=== PATIENT | male | born 1950 | race Hispanic/Latino ===

== ENCOUNTER 2019-06-13 08:47 | Observation (INO) | payer OTHER ==
[~2019-06-13] VITALS: Ht 177.8 cm; Wt 83.9 kg
[~2019-06-13 08:47] MED LIST: ASPI-1197 PO; ATOR10TA69 PO; METO25TA6 PO; PRAS10TA6 PO; VALS40TA11 PO
[2019-06-13] MEDS ORDERED: ASPIRIN 325 MG TABLET ONE (09:11)
[2019-06-13 09:15] LABS: BASOPHILS % (AUTO) 0.5 % (0.0-5.0); EOSINOPHILS % (AUTO) 0.9 % (0.0-8.0); HEMATOCRIT 42.4 % (42-54); LYMPHOCYTES % (AUTO) 28.4 % (21.0-51.0); MEAN CORPUSCULAR HEMOGLOBIN 27.8 pg (27.0-33.0); MEAN CORPUSCULAR HGB CONC 33.8 g/dL (32.0-36.0); MEAN CORPUSCULAR VOLUME 82.3 fL (79-99); MONOCYTES % (AUTO) 7.2 % (3.0-13.0); NUCLEATED RED BLOOD CELLS 0.1 % (0.0-0.19); PLATELET COUNT (AUTO) 224 K/uL (130-400); RED BLOOD CELL COUNT(AUTO) 5.15 MIL/uL (4.50-6.20); RED CELL DISTRIBUTION WIDTH 16.3 % (11.0-15.5)
[2019-06-13 09:31] LABS: INR 0.94 (0.85-1.15); PROTHROMBIN TIME 9.9 SEC (9.6-11.6)
[2019-06-13 09:35] LABS: ALBUMIN 3.4 g/dL (3.5-5.0); BILIRUBIN,TOTAL 0.9 mg/dL (0.2-1.0); POTASSIUM 4.4 mmol/L (3.5-5.1)
[2019-06-13 09:47] LABS: CREATININE 1.1 mg/dL (0.5-1.5)
[2019-06-13] MEDS ORDERED: NITROGLYCERIN 1GM/1 INCH PACKET TD ONE (09:50)
[2019-06-13 09:53] LABS: B-TYPE NATRIURETIC PEPTIDE 48 pg/mL (0-100)
[2019-06-13] MEDS ORDERED: LACTULOSE 20 GM/30 ML UDCUP PO PRN (11:00)
[2019-06-13] MEDS ORDERED: METOPROLOL TARTRATE 25 MG TAB PO SCH (11:00)
[2019-06-13] MEDS ORDERED: ACETAMINOPHEN 325 MG TAB PO PRN ×2 (11:00)
[2019-06-13] MEDS ORDERED: MORPHINE SULFATE 2 MG/ML 1ML SYG IV PRN (11:00)
[2019-06-13] MEDS ORDERED: ONDANSETRON HCL 4 MG/2 ML VIAL IV PRN (11:00)
[2019-06-13] MEDS ORDERED: HYDRALAZINE HCL 20 MG/ML VIAL IV PRN (11:00)
[2019-06-13] MEDS ORDERED: NITROGLYCERIN 1GM/1 INCH PACKET TD SCH (11:00)
[2019-06-13] MEDS ORDERED: METOPROLOL TARTRATE 25 MG TAB ONE ×2 (11:39→21:33)
[2019-06-13 12:19] LABS: CREATINE KINASE, TOTAL 74 U/L (21-232); MYOGLOBIN 25 ng/mL (10-92); PHOSPHORUS 2.5 mg/dL (2.5-4.9); TROPONIN I < 0.04 ng/mL (0.00-0.06)
[2019-06-13] MEDS ORDERED: ACETAMINOPHEN 325 MG TAB ONE (16:25)
[2019-06-13 19:53] LABS: CREATINE KINASE, TOTAL 48 U/L (21-232); MYOGLOBIN 24 ng/mL (10-92); TROPONIN I < 0.04 ng/mL (0.00-0.06)
[2019-06-13] MEDS ORDERED: FAMOTIDINE/PF 20 MG/2 ML VIAL IV SCH (21:00)
[2019-06-13] MEDS ORDERED: FAMOTIDINE 20MG TAB 20 MG TAB ONE (21:33)
[2019-06-14 04:17] LABS: CHOLESTEROL 195 mg/dL (<200); CREATINE KINASE, TOTAL 45 U/L (21-232); HDL CHOLESTEROL 45 mg/dL (29-71); LDL DIRECT 133 mg/dL (0-99); MYOGLOBIN 28 ng/mL (10-92); TRIGLYCERIDES 139 mg/dL (30-200); TROPONIN I < 0.04 ng/mL (0.00-0.06)
[2019-06-14] MEDS ORDERED: ENOXAPARIN SODIUM 40 MG/0.4 ML SYRINGE SQ SCH (09:00)
[2019-06-14] MEDS ORDERED: ASPIRIN 325 MG TABLET PO SCH (09:00)
--- NOTE | 2019-06-14 11:55 | NUR ---
DISCHARGE DISCHARGE TEACHING DONE WITH PATIENT AND USING TEACHBACK METHOD, VERBALIZED UNDERSTANDING. NO NOTED SOB OR DISTRESS. NEW MEDICATION ADMINISTRATION TEACHING DONE WITH PATIENT AND , VERBALIZED UNDERSTANDING. PT AWARE TO SET UP APPOINTMENT WITH PCP AND SUBSTATION OPERATOR. IV REMOVED, CATH TIP INTACT. PENDING TO BE TRANSFERRED OUT VIA PRIVATE VEHICLE.
== END 2019-06-14 11:55 | disposition home or self-care (01) ==
LOC: EDH 08:47 → EDHIP 10:52
PROVIDERS: ADMIT Internal Medicine; ATTEND Internal Medicine
DX: I25.110 Atherosclerotic heart disease of native coronary artery with unstable angina pectoris (principal); E78.5 Hyperlipidemia, unspecified; I10 Essential (primary) hypertension; I25.5 Ischemic cardiomyopathy; Z87.442 Personal history of urinary calculi; Z95.1 Presence of aortocoronary bypass graft; Z95.5 Presence of coronary angioplasty implant and graft; Z80.0 Family history of malignant neoplasm of digestive organs; Z82.3 Family history of stroke; Z82.49 Family history of ischemic heart disease and other diseases of the circulatory system; Z83.3 Family history of diabetes mellitus; Z79.899 Other long term (current) drug therapy; Z79.01 Long term (current) use of anticoagulants
CPT/HCPCS: 36415 ×2; 71045; 80053; 80061; 82550 ×4; 83735; 83874 ×3; 83880; 84100; 84484 ×4; 85025; 85610; 85730; 93005 ×4; 99284; G0378 ×25

== ENCOUNTER 2019-08-16 09:55 | Observation (INO) | payer OTHER ==
[2019-08-11 10:21] VITALS: BP 155/92
[2019-08-11 10:27] LABS: APPEARANCE,URINE Clear (CLEAR); BILIRUBIN,URINE Negative (NEGATIVE); COLOR,URINE Yellow (YELLOW); GLUCOSE, URINE (UA) Negative (NEGATIVE); KETONES,URINE Negative (NEGATIVE); LEUKOCYTE ESTERASE ,URINE Trace (NEGATIVE); NITRATE,URINE Negative (NEGATIVE); OCCULT BLOOD,URINE Negative (NEGATIVE); PH,URINE 6.5 (5.0-8.0); PROTEIN,URINE Negative (NEGATIVE)
[2019-08-11 10:28] LABS: BASOPHILS % (AUTO) 0.7 % (0.0-5.0); EOSINOPHILS % (AUTO) 1.5 % (0.0-8.0); HEMATOCRIT 42.8 % (42-54); LYMPHOCYTES % (AUTO) 29.5 % (21.0-51.0); MEAN CORPUSCULAR HEMOGLOBIN 28.3 pg (27.0-33.0); MEAN CORPUSCULAR HGB CONC 33.9 g/dL (32.0-36.0); MEAN CORPUSCULAR VOLUME 83.5 fL (79-99); MONOCYTES % (AUTO) 8.2 % (3.0-13.0); NEUTROPHILS % (AUTO) 60.1 % (40.0-77.0); NUCLEATED RED BLOOD CELLS 0.1 % (0.0-0.19); PLATELET COUNT (AUTO) 183 K/uL (130-400); RED BLOOD CELL COUNT(AUTO) 5.13 MIL/uL (4.50-6.20); RED CELL DISTRIBUTION WIDTH 15.6 % (11.0-15.5); WHITE BLOOD COUNT (AUTO) 6.9 K/uL (4.8-10.8)
[2019-08-11 10:32] LABS: BACTERIA,URINE Rare /HPF (None Seen); MUCUS,URINE Moderate LPF (None Seen); RBC,URINE None Seen /HPF (0-1); SQUAMOUS EPITHELIAL CELL,UR Rare /HPF (0-2); WBC,URINE 0-1 /HPF (0-1)
[2019-08-11 10:39] LABS: POTASSIUM 4.7 mmol/L (3.5-5.1)
[2019-08-11 10:42] LABS: INR 0.98 (0.85-1.15); PARTIAL THROMBOPLASTIN TIME 26.8 SEC (26.3-35.5); PROTHROMBIN TIME 10.3 SEC (9.6-11.6)
--- NOTE | 2019-08-15 11:44 | NUR ---
EARNEST BOO NOTIFIED OF ABNORMAL UA, NO NEW ORDERS, PROCEED WITH PROCEDURE.
[2019-08-16] VITALS (10 sets, daily range): BP systolic 97–151; BP diastolic 57–87
[~2019-08-16] VITALS: Ht 177.8 cm; Wt 84.1 kg
[~2019-08-16 09:55] MED LIST changes: +ENAL5TAB PO; -METO25TA6 PO; +NITR0.4T50 SL; -PRAS10TA6 PO; +SODIUM CHLORIDE 0.9% 1000ML 1,000 ML IV SCH; +TELM20TA8 PO; -VALS40TA11 PO
[2019-08-16] MEDS ORDERED: PRAS10TA6 PO (12:06)
[2019-08-16] MEDS ORDERED: METO50TA18 PO (12:08)
[2019-08-16] MEDS ORDERED: IOHEXOL 350 MG/ML 100ML INFUS..BTL IV ONE ×2 (12:12→13:10)
[2019-08-16] MEDS ORDERED: NITROGLYCERIN 5 MG/ML 10 ML VIAL IV ONE (12:12)
[2019-08-16] MEDS ORDERED: HEPARIN SODIUM 1000UNIT/ML 10ML VIAL ONE (12:12)
[2019-08-16] MEDS ORDERED: IOHEXOL-350 50ML VIAL IV ONE (12:12)
[2019-08-16] MEDS ORDERED: LIDOCAINE HCL 2% 20ML ONE (12:13)
[2019-08-16] MEDS ORDERED: NICARDIPINE HCL 25 MG/10 ML ML IV ONE (13:43)
[2019-08-16] MEDS ORDERED: ADENOSINE 3 MG/ML 2ML VIAL IV ONE (13:44)
[2019-08-16] MEDS ORDERED: MIDAZOLAM HCL 1 MG/ML 2ML VIAL ONE (13:46)
[2019-08-16] MEDS ORDERED: ATROPINE SULFATE 0.1 MG/ML 10 ML SYG IVP ONE (13:47)
[2019-08-16] MEDS ORDERED: MEPERIDINE-PF 25 MG/ML SYG ONE (13:47)
[2019-08-16] MEDS ORDERED: ACETAMINOPHEN 325 MG TAB PO PRN (14:00)
[2019-08-16] MEDS ORDERED: SODIUM CHLORIDE 0.9% 1000ML 1,000 ML IV SCH (14:00)
[2019-08-16] MEDS ORDERED: NITROGLYCERIN 0.4 MG SL TAB SL SCH (14:15)
[2019-08-16] MEDS: FUROSEMIDE 20 MG TABLET PO SCH (16:58)
[2019-08-16] MEDS ORDERED: ATORVASTATIN CALCIUM 10 MG TABLET PO SCH (21:00)
[2019-08-16] MEDS ORDERED: ATORVASTATIN CALCIUM 40 MG TABLET PO SCH (21:00)
[2019-08-16] MEDS: SPIRONOLACTONE 25 MG TAB PO SCH (21:11)
[2019-08-16] MEDS: METOPROLOL TARTRATE 50 MG TAB PO SCH (21:11)
[2019-08-16] MEDS: ENALAPRIL MALEATE 5 MG TAB PO SCH (21:11)
[2019-08-17 03:59] VITALS: BP 109/62
[2019-08-17 04:49] LABS: HEMATOCRIT 41.5 % (42-54); MEAN CORPUSCULAR HEMOGLOBIN 28.2 pg (27.0-33.0); MEAN CORPUSCULAR HGB CONC 33.9 g/dL (32.0-36.0); PLATELET COUNT (AUTO) 187 K/uL (130-400); RED CELL DISTRIBUTION WIDTH 15.2 % (11.0-15.5); WHITE BLOOD COUNT (AUTO) 10.2 K/uL (4.8-10.8)
[2019-08-17 05:07] LABS: POTASSIUM 4.7 mmol/L (3.5-5.1)
[2019-08-17 07:44] VITALS: BP 119/64
[2019-08-17] MEDS ORDERED: PRASUGREL HCL 10 MG TABLET PO SCH (09:00)
[2019-08-17] MEDS ORDERED: LOSARTAN 50 MG TABLET PO SCH (09:00)
[2019-08-17] MEDS ORDERED: ASPIRIN 81MG TAB.CHEW PO SCH (09:00)
[2019-08-17] MEDS: SPIRONOLACTONE 25 MG TAB PO SCH (10:23)
[2019-08-17] MEDS: FUROSEMIDE 20 MG TABLET PO SCH (10:23)
[2019-08-17] MEDS: ENALAPRIL MALEATE 5 MG TAB PO SCH (10:24)
[2019-08-17] MEDS: METOPROLOL TARTRATE 50 MG TAB PO SCH (10:25)
[2019-08-17 11:32] VITALS: BP 109/63
--- NOTE | 2019-08-17 13:10 | NUR ---
Patient discharged in stable condition. Patient instructed on after care of LHC. Patient states he was aware of aftercare of LHC as it was his 4th one done. Reinforced s/s of instruction of reporting s/s of redness, oozing, fever chills ,monitor for s/s of bleeding and hematoma. IV and telepack removed. Patient with no other questions or concerns.
== END 2019-08-17 13:40 | disposition home or self-care (01) ==
LOC: DAH 09:55 → DAHIP 09:56 → DAH 09:56 → 2AH 15:28
PROVIDERS: ADMIT Internal Medicine; ATTEND Internal Medicine
DX: I25.119 Atherosclerotic heart disease of native coronary artery with unspecified angina pectoris (principal); I11.0 Hypertensive heart disease with heart failure; I50.42 Chronic combined systolic (congestive) and diastolic (congestive) heart failure; K21.9 Gastro-esophageal reflux disease without esophagitis; I25.5 Ischemic cardiomyopathy; E78.00 Pure hypercholesterolemia, unspecified; T82.855A Stenosis of coronary artery stent, initial encounter; Y83.1 Surgical operation with implant of artificial internal device as the cause of abnormal reaction of the patient, or of later complication, without mention of misadventure at the time of the procedure; Z80.0 Family history of malignant neoplasm of digestive organs; Z82.3 Family history of stroke; Z82.49 Family history of ischemic heart disease and other diseases of the circulatory system; Z83.3 Family history of diabetes mellitus; Z95.1 Presence of aortocoronary bypass graft; Z90.89 Acquired absence of other organs
CPT/HCPCS: 36415 ×2; 71045; 80048 ×2; 81001; 85025; 85027; 85610; 85730; 93005; 93459; A4215; A4216; A4221; A4222; A4223 ×3; A4606; C1760; C1769; C1874 ×3; C1887; C1894; C9604; G0378 ×24; J0153; J1644 ×2; J2175; J2250; J3490 ×2; J7030; Q9965 ×2; Q9967 ×3; 99156; 99157; J0461

== ENCOUNTER 2019-08-25 10:47 | Emergency (ER) | payer OTHER ==
[~2019-08-25 10:47] MED LIST changes: +METO50TA18 PO; +PRAS10TA6 PO; -SODIUM CHLORIDE 0.9% 1000ML 1,000 ML IV SCH
[2019-08-25] MEDS ORDERED: ASPIRIN 325 MG TABLET ONE (10:58)
[2019-08-25 11:14] LABS: BASOPHILS % (AUTO) 1.1 % (0.0-5.0); EOSINOPHILS % (AUTO) 1.4 % (0.0-8.0); HEMATOCRIT 41.5 % (42-54); LYMPHOCYTES % (AUTO) 24.9 % (21.0-51.0); MEAN CORPUSCULAR HEMOGLOBIN 28.4 pg (27.0-33.0); MEAN CORPUSCULAR HGB CONC 34.4 g/dL (32.0-36.0); MEAN CORPUSCULAR VOLUME 82.4 fL (79-99); MONOCYTES % (AUTO) 7.5 % (3.0-13.0); NEUTROPHILS % (AUTO) 65.1 % (40.0-77.0); NUCLEATED RED BLOOD CELLS 0.1 % (0.0-0.19); PLATELET COUNT (AUTO) 204 K/uL (130-400); RED BLOOD CELL COUNT(AUTO) 5.03 MIL/uL (4.50-6.20); RED CELL DISTRIBUTION WIDTH 14.6 % (11.0-15.5); WHITE BLOOD COUNT (AUTO) 8.6 K/uL (4.8-10.8)
[2019-08-25] MEDS ORDERED: NITROGLYCERIN 1GM/1 INCH PACKET TD ONE (11:20)
[2019-08-25 11:23] LABS: CREATININE 1.2 mg/dL (0.5-1.5); POTASSIUM 4.3 mmol/L (3.5-5.1)
[2019-08-25 11:26] LABS: INR 0.97 (0.85-1.15); PARTIAL THROMBOPLASTIN TIME 26.4 SEC (26.3-35.5); PROTHROMBIN TIME 10.2 SEC (9.6-11.6)
[2019-08-25 11:34] LABS: ALBUMIN 3.5 g/dL (3.5-5.0); BILIRUBIN,TOTAL 0.5 mg/dL (0.2-1.0); TOTAL PROTEIN, SERUM 6.8 g/dL (6.0-8.3)
[2019-08-25] MEDS ORDERED: ACETAMINOPHEN EXTRA STRENGTH 500 MG TABLET ONE (19:48)
== END 2019-08-25 20:25 | disposition home or self-care (01) ==
LOC: EDH 10:47
DX: R07.89 Other chest pain (principal); I10 Essential (primary) hypertension; E78.5 Hyperlipidemia, unspecified; I25.10 Atherosclerotic heart disease of native coronary artery without angina pectoris; I25.2 Old myocardial infarction; Z95.1 Presence of aortocoronary bypass graft; Z88.0 Allergy status to penicillin; Z79.899 Other long term (current) drug therapy
CPT/HCPCS: 36415; 71045; 80053; 82550; 83874; 84484; 85025; 85610; 85730; 93005

== ENCOUNTER 2020-01-17 09:42 | Observation (INO) | payer OTHER ==
[2020-01-12 10:10] VITALS: BP 136/68
[2020-01-12 10:24] LABS: BASOPHILS % (AUTO) 0.5 % (0.0-5.0); EOSINOPHILS % (AUTO) 1.4 % (0.0-8.0); HEMATOCRIT 40.3 % (42-54); LYMPHOCYTES % (AUTO) 25.7 % (21.0-51.0); MEAN CORPUSCULAR HEMOGLOBIN 27.1 pg (27.0-33.0); MEAN CORPUSCULAR VOLUME 82.2 fL (79-99); MONOCYTES % (AUTO) 7.2 % (3.0-13.0); NEUTROPHILS % (AUTO) 64.9 % (40.0-77.0); PLATELET COUNT (AUTO) 227 K/uL (130-400); RED CELL DISTRIBUTION WIDTH 14.6 % (11.0-15.5); WHITE BLOOD COUNT (AUTO) 7.7 K/uL (4.8-10.8)
[2020-01-12 10:35] LABS: CREATININE 1.1 mg/dL (0.5-1.5); POTASSIUM 4.9 mmol/L (3.5-5.1)
[2020-01-12 10:36] LABS: INR 0.98 (0.85-1.15); PARTIAL THROMBOPLASTIN TIME 26.6 SEC (26.3-35.5); PROTHROMBIN TIME 10.3 SEC (9.6-11.6)
[~2020-01-17] VITALS: Ht 177.8 cm; Wt 83.1 kg
[2020-01-17] VITALS (12 sets, daily range): BP systolic 94–142; BP diastolic 53–78
[~2020-01-17 09:42] MED LIST changes: -ENAL5TAB PO; +EZET10TA48 PO; -NITR0.4T50 SL; +SODIUM CHLORIDE 0.9% 1000ML 1,000 ML IV SCH; +SPIR25TA6 PO
[2020-01-17] MEDS ORDERED: TELM40TA8 PO (10:56)
[2020-01-17] MEDS ORDERED: ATOR-2 PO (10:56)
--- NOTE | 2020-01-17 12:58 | NUR ---
PROCEDURE PT TAKEN TO BALANCE WHEEL FACER FOR SCHEDULED PROCEDURE
[2020-01-17] MEDS ORDERED: CEFAZOLIN SODIUM 1 GM VIAL ONE (13:02)
[2020-01-17] MEDS ORDERED: BUPIVACAINE/PF 0.25% 30ML VIAL IJ ONE (13:04)
[2020-01-17] MEDS ORDERED: IODIXANOL 320 MG/ML 100 ML VIAL ONE (13:04)
[2020-01-17] MEDS ORDERED: LIDOCAINE HCL 1% MDV 50ML VIAL ONE (13:04)
[2020-01-17] MEDS ORDERED: MIDAZOLAM HCL 1 MG/ML 2ML VIAL ONE ×3 (13:04→13:46)
[2020-01-17] MEDS ORDERED: MEPERIDINE-PF 25 MG/ML SYG ONE ×3 (13:04→13:46)
[2020-01-17] MEDS ORDERED: VANCOMYCIN 1GM+NS 250ML 500 ML IV ONE (13:06)
[2020-01-17] MEDS ORDERED: TEMAZEPAM 30 MG CAP PO PRN (14:45)
[2020-01-17] MEDS ORDERED: ONDANSETRON HCL 4 MG/2 ML VIAL IV PRN (14:45)
[2020-01-17] MEDS ORDERED: ACETAMINOPHEN-CODEINE 300/30MG TAB PO PRN (14:45)
--- NOTE | 2020-01-17 15:00 | NUR ---
PT ARRIVED FROM TELEPHONE LINES REPAIRER, STABLE , PRESSURE DRESSING LEFT CHEST WALL, DRY AND INTACT.
--- NOTE | 2020-01-17 16:30 | NUR ---
REPORT REPORT RECEIVED FROM MAGED VENTURA RN. PT RECEIVED SEMI SITTING POSITION ON BED. PT STABLE. LEFT ARM IN SLING, PRESSURE DRESSING LEFT UPPER CHEST INTACT, ICE PACK IN PLACE. GAUZE/OPSITE DRESSING TO INCISION WITH SOME PINKISH DRAINAGE NOTED, NO ACTIVE OOZING OR ACTIVE BLEEDING NOTED. SITE SOFT, NO HEMATOMA NOTED. PT INSTRUCTED NOT TO ELEVATE LEFT ARM ABOVE SHOULDER LEVEL, KEEP HOB ELEVATED. PT VERBALIZED UNDERSTANDING. WILL CONTINUE TO MONITOR PT.
--- NOTE | 2020-01-17 16:30 | NUR ---
GAVE REPORT TO DIGNA JAY RN , NO CONCERNS VOICED
--- NOTE | 2020-01-17 16:50 | NUR ---
PT COMPLAINING OF SORENESS TO LEFT CHEST AICD SITE, REFUSED TYLENOL #3, PREFERS TYLENOL PLAIN. CALLED [facility] FOR DR. CROCKETT. ORDERS FOR TYLENOL 650 MG PO X1 NOW. Addendum: 01/17/20 at 1810 by HIPOLITO JAY RN RN ADDENDUM: AICD SITE LEFT UPPER CHEST REMAINS SOFT, NO ACTIVE OOZING NO BLEEDING NOTED.
[2020-01-17] MEDS ORDERED: ACETAMINOPHEN 325 MG TAB ONE (16:55)
--- NOTE | 2020-01-17 17:20 | NUR ---
SITE AICD SITE CHECKED, NO CHANGES NOTED. PT VERBALIZED RELIEF FROM PAIN, STATES HE FEELS SO MUCH BETTER.
--- NOTE | 2020-01-17 17:50 | NUR ---
TRANSFER PT TRANSFERRED TO ROOM 220. PT STABLE. PRESSURE DRESSING REMAINS INTACT, AICD SITE NO CHANGES, REMAINS SOFT, NO OOZING NO BLEEDING NOTED. PT RECEIVED BY JL PHILLIP. REPORT GIVEN TO MARJAN COPELAND.
--- NOTE | 2020-01-17 18:10 | NUR ---
TRANSFER FROM DAY PATIENT RECEIVED PT IN SEMI LOPEZ'S POSITION, A&OX3, CALM COOPERATIVE AND DOES NOT APPEAR TO BE IN ANY DISTRESS NOR ANY NEURO DEFICITS PRESENT. PT DENIES PAIN, SOB, NAUSEA. LEFT SHOULDER DRESSING DRY, INTACT AND SECURED WITH ARM SLING. PT ON BEDREST UNTIL 2100. CALL LIGHT WITHIN REACH, FAMILY AT BEDSIDE.
[2020-01-17] MEDS ORDERED: ACETAMINOPHEN 325 MG TAB PO ONE (19:00)
[2020-01-17] MEDS: ACETAMINOPHEN-CODEINE 300/30MG TAB PO PRN (19:49)
[2020-01-18] MEDS: ACETAMINOPHEN-CODEINE 300/30MG TAB PO PRN (02:10)
[2020-01-18 04:03] VITALS: BP 122/74
[2020-01-18] MEDS ORDERED: VANCOMYCIN 1GM+NS 250ML 250 ML IV PRN (06:00)
[2020-01-18 07:38] VITALS: BP 117/69
--- NOTE | 2020-01-18 08:00 | NUR ---
ASSESSMENT PT IS AAOX3 DENIES CP DENIES SOB DENIES NV NO COMPLAINTS, SITTING UP AT BEDSIDE. CALL LIGHT WITHIN REACH. DR KEIRA FRAZIER, SAW PATIENT, HE CHANGED DRESSING TO LEFT UPPER CHEST.
[2020-01-18] MEDS ORDERED: DOXY100C2 PO (09:09)
[2020-01-18 11:46] VITALS: BP 121/61
--- NOTE | 2020-01-18 12:25 | NUR ---
DISCHARGE PT AND FAMILY VERBALIZE DC INSTRUCTIONS UNDERSTANDING AGREE TO TAKE MDS ORDERED, AGREE TO FOLLOW UP WITH MD ORDERED ALL QUESTIONS ANSWERED PIV REMOVED CATH TIP INTACT, TELE PACK REMOVED. HIPOLITO WALDEN WITH NURSE AIDE AND FAMILY.
--- NOTE | 2020-01-18 13:47 | NUR ---
[id number] Patient signed SON Letter. I faxed SON Letter to [id number] and placed in chart under consent tab
== END 2020-01-18 12:50 | disposition home or self-care (01) ==
LOC: DAH 09:42 → DAHIP 09:43 → DAH 09:43 → 2DH 17:56
PROVIDERS: ADMIT Internal Medicine; ATTEND Internal Medicine
DX: I25.5 Ischemic cardiomyopathy (principal); I25.810 Atherosclerosis of coronary artery bypass graft(s) without angina pectoris; I10 Essential (primary) hypertension; E78.5 Hyperlipidemia, unspecified; Z95.0 Presence of cardiac pacemaker; Z95.1 Presence of aortocoronary bypass graft; K21.9 Gastro-esophageal reflux disease without esophagitis; Z79.01 Long term (current) use of anticoagulants; Z79.82 Long term (current) use of aspirin; Z79.899 Other long term (current) drug therapy; Z88.0 Allergy status to penicillin; Z98.890 Other specified postprocedural states; Z95.5 Presence of coronary angioplasty implant and graft
CPT/HCPCS: 33249; 36415; 71046; 80048; 85025; 85610; 85730; 93005; A4215; A4216; A4221; A4222; A4223 ×3; A4606; A4663; C1721; C1894; C1895 ×2; G0378 ×22; J2175 ×2; J2250 ×2; J3370; J3490 ×2; J7030; 99156; 99157; J0690; Q9967

== ENCOUNTER → 2020-05-16 | Outpatient (CLI) | payer OTHER ==
[~2020-05-16] MED LIST changes: +ATOR-2 PO; -ATOR10TA69 PO; +DOXY100C2 PO; -SODIUM CHLORIDE 0.9% 1000ML 1,000 ML IV SCH; -TELM20TA8 PO; +TELM40TA8 PO
== END | disposition home or self-care (01) ==
LOC: SHCH 14:19
PROVIDERS: ATTEND Internal Medicine Cardiovascular Disease
DX: R09.89 Other specified symptoms and signs involving the circulatory and respiratory systems (principal)
CPT/HCPCS: 93880

== ENCOUNTER → 2020-07-12 | Outpatient (CLI) | payer OTHER | END | disposition home or self-care (01) | LOC: SHCH 07:40 | PROVIDERS: ATTEND Internal Medicine Cardiovascular Disease | DX: I71.4 Abdominal aortic aneurysm, without rupture (principal) | CPT/HCPCS: 93978 ==

== ENCOUNTER → 2022-12-30 | Outpatient (CLI) | payer MEDICARE ==
[~2022-12-30] MED LIST changes: +CLOP-31 PO; -DOXY100C2 PO; -EZET10TA48 PO; +FURO40TA7 PO; -METO50TA18 PO; +METO50TA9 PO; -PRAS10TA6 PO; +SACU1TAB PO; -TELM40TA8 PO
== END | disposition home or self-care (01) ==
LOC: SHCH 14:47
PROVIDERS: ATTEND Internal Medicine Cardiovascular Disease
DX: R07.9 Chest pain, unspecified (principal); I25.10 Atherosclerotic heart disease of native coronary artery without angina pectoris
CPT/HCPCS: 93880

== ENCOUNTER → 2023-01-19 | Outpatient (CLI) | payer MEDICARE ==
[~2023-01-19] MED LIST changes: +REGADENOSON 0.4 MG/5 ML PF SYG IVP SCH
== END | disposition home or self-care (01) ==
LOC: SHCH 09:31
PROVIDERS: ATTEND Internal Medicine Cardiovascular Disease
DX: I51.7 Cardiomegaly (principal); I25.10 Atherosclerotic heart disease of native coronary artery without angina pectoris; Z95.1 Presence of aortocoronary bypass graft
CPT/HCPCS: 78452; 96374; 93017; J2785; A9500 ×2

== ENCOUNTER 2023-04-02 03:37 | Emergency (ER) | payer MEDICARE ==
[~2023-04-02] VITALS: Ht 177.8 cm; Wt 83.5 kg
[~2023-04-02 03:37] MED LIST changes: -REGADENOSON 0.4 MG/5 ML PF SYG IVP SCH
[2023-04-02 04:02] LABS: BASOPHILS % (AUTO) 0.5 % (0.0-5.0); EOSINOPHILS % (AUTO) 2.3 % (0.0-8.0); HEMATOCRIT 39.5 % (42-54); LYMPHOCYTES % (AUTO) 31.1 % (21.0-51.0); MEAN CORPUSCULAR HEMOGLOBIN 27.4 pg (27.0-33.0); MEAN CORPUSCULAR HGB CONC 33.2 g/dL (32.0-36.0); MEAN CORPUSCULAR VOLUME 82.6 fL (79-99); MONOCYTES % (AUTO) 10.9 % (3.0-13.0); NEUTROPHILS % (AUTO) 54.8 % (40.0-77.0); PLATELET COUNT (AUTO) 204 K/uL (130-400); RED BLOOD CELL COUNT(AUTO) 4.78 MIL/uL (4.50-6.20); RED CELL DISTRIBUTION WIDTH 14.8 % (11.0-15.5); WHITE BLOOD COUNT (AUTO) 7.4 K/uL (4.8-10.8)
[2023-04-02] MEDS ORDERED: SPIR25TA6 PO (04:05)
[2023-04-02] MEDS ORDERED: CLOP75TA32 PO (04:05)
[2023-04-02] MEDS ORDERED: AEC81 PO (04:05)
[2023-04-02] MEDS ORDERED: METO-391 PO (04:05)
[2023-04-02] MEDS ORDERED: RANO10005 PO (04:05)
[2023-04-02] MEDS ORDERED: SACU1TAB PO (04:05)
[2023-04-02] MEDS ORDERED: ATOR-2 PO (04:05)
[2023-04-02 04:10] LABS: CREATININE 1.3 mg/dL (0.5-1.5); POTASSIUM 4.4 mmol/L (3.5-5.1)
[2023-04-02 04:13] LABS: INR 0.94 (0.85-1.15); PROTHROMBIN TIME 10.3 SEC (9.6-11.6)
[2023-04-02 04:14] LABS: PARTIAL THROMBOPLASTIN TIME 27.6 SEC (26.3-35.5)
[2023-04-02 04:15] LABS: ALBUMIN 3.5 g/dL (3.5-5.0); MAGNESIUM 2.2 mg/dL (1.80-2.40); TOTAL PROTEIN, SERUM 7.1 g/dL (6.0-8.3)
[2023-04-02 06:16] VITALS: BP 116/62
== END 2023-04-02 06:18 | disposition home or self-care (01) ==
LOC: EDH 03:37
DX: R07.89 Other chest pain (principal); I25.10 Atherosclerotic heart disease of native coronary artery without angina pectoris; Z79.02 Long term (current) use of antithrombotics/antiplatelets; Z79.82 Long term (current) use of aspirin; Z79.899 Other long term (current) drug therapy; Z88.0 Allergy status to penicillin; Z95.1 Presence of aortocoronary bypass graft
CPT/HCPCS: 36415; 71045; 80053; 83735; 84484; 85025; 85610; 85730; 93005

== ENCOUNTER 2023-12-11 23:21 | Emergency (ER) | payer MEDICARE ==
[~2023-12-11] VITALS: Ht 177.8 cm; Wt 86.2 kg
[~2023-12-11 23:21] MED LIST changes: +AEC81 PO; +CLOP75TA32 PO; +METO-391 PO; +RANO10005 PO
[2023-12-12] MEDS ORDERED: HYDROCODONE/ACETAMINOPHEN 5/325 MG TAB PO ONE (02:30)
[2023-12-12 02:53] VITALS: BP 154/76; PULSE 86; RESP 16; O2SAT 98
== END 2023-12-12 02:53 | disposition home or self-care (01) ==
LOC: EDH 23:21
DX: S20.212A Contusion of left front wall of thorax, initial encounter (principal); I10 Essential (primary) hypertension; E78.00 Pure hypercholesterolemia, unspecified; Z79.82 Long term (current) use of aspirin; Z79.899 Other long term (current) drug therapy; Z98.890 Other specified postprocedural states; X58.XXXA Exposure to other specified factors, initial encounter; Y93.89 Activity, other specified; Y92.89 Other specified places as the place of occurrence of the external cause; Y99.8 Other external cause status
CPT/HCPCS: 36415; 71045; 82550; 84484; 93005

== ENCOUNTER 2024-02-16 10:28 | Observation (INO) | payer MEDICARE ==
[2024-02-16] VITALS (8 sets, daily range): BP systolic 124–136; BP diastolic 68–72; PULSE 75–85; RESP 16–21; O2SAT 95–98
[~2024-02-16] VITALS: Ht 177.8 cm; Wt 95.9 kg
[2024-02-16] MEDS ORDERED: IPRATROPIUM/ALBUTEROL SULFATE 3 ML SOLUTION IH PRN (11:00)
[2024-02-16] MEDS ORDERED: MAGNESIUM 2GM PREMIX 50ML 50 ML IV PRN (11:00)
[2024-02-16] MEDS ORDERED: POTASSIUM CHLORIDE 10% ELIXIR 20 MEQ/15 ML UDCUP PO PRN (11:00)
[2024-02-16] MEDS ORDERED: KCL 20 MEQ ERTAB PO PRN (11:00)
[2024-02-16] MEDS ORDERED: ACETAMINOPHEN 500 MG TABLET PO PRN (11:00)
[2024-02-16] MEDS ORDERED: POTASSIUM CHLORIDE 20MEQ/100ML 100 ML IV PRN (11:00)
[2024-02-16] MEDS: LEVOFLOXACIN 500 MG/D5W 100 ML 100 ML IV SCH (11:08)
[2024-02-16] MEDS: SOLU-MEDROL 40MG VIAL IVP SCH (11:08)
[2024-02-16 11:26] LABS: BASOPHILS # (AUTO) 0.02 K/uL (0.00-0.20); BASOPHILS % (AUTO) 0.2 % (0.0-5.0); EOSINOPHILS # (AUTO) 0.02 K/uL (0.00-0.70); EOSINOPHILS % (AUTO) 0.2 % (0.0-8.0); HEMATOCRIT 39.9 % (42-54); IMMATURE GRANULOCYTE ABSOLUTE 0.04 K/uL (0-1); LYMPHOCYTES # (AUTO) 1.5 K/uL (1.0-4.8); LYMPHOCYTES % (AUTO) 16.9 % (21.0-51.0); MEAN CORPUSCULAR HEMOGLOBIN 27.4 pg (27.0-33.0); MEAN CORPUSCULAR HGB CONC 32.8 g/dL (32.0-36.0); MEAN CORPUSCULAR VOLUME 83.5 fL (79-99); MONOCYTES # (AUTO) 0.2 K/uL (0.1-1.0); MONOCYTES % (AUTO) 2.4 % (3.0-13.0); NEUTROPHILS # (AUTO) 6.9 K/uL (1.8-7.7); NEUTROPHILS % (AUTO) 79.8 % (40.0-77.0); PLATELET COUNT (AUTO) 181 K/uL (130-400); RED BLOOD CELL COUNT(AUTO) 4.78 MIL/uL (4.50-6.20); RED CELL DISTRIBUTION WIDTH 14.9 % (11.0-15.5); WHITE BLOOD COUNT (AUTO) 8.6 K/uL (4.8-10.8)
[2024-02-16] MEDS: DOXYCYCLINE HYCLATE 100 MG TABLET PO SCH (11:34)
[2024-02-16] MEDS: GUAIFENESIN-DM 200/20 MG 10 ML PO PRN (11:34)
[2024-02-16 11:48] LABS: B-TYPE NATRIURETIC PEPTIDE 63 pg/mL (0-100)
[2024-02-16 11:50] LABS: ALBUMIN 3.3 g/dL (3.5-5.0); BILIRUBIN,TOTAL 0.3 mg/dL (0.2-1.0); CREATININE 1.1 mg/dL (0.5-1.3); MAGNESIUM 2.1 mg/dL (1.80-2.40); THYROID STIMULATING HORMONE 2.01 uIU/mL (0.36-3.74); TOTAL PROTEIN, SERUM 7.2 g/dL (6.0-8.3)
[2024-02-16] MEDS ORDERED: METH4TAB3 PO (11:50)
[2024-02-16] MEDS ORDERED: ALBU6.7H14 IH (11:50)
[2024-02-16 11:51] LABS: POTASSIUM 4.8 mmol/L (3.5-5.1)
[2024-02-16 12:03] LABS: BAND NEUTROPHILS % (MANUAL) 1 % (0-2); BASOPHILS % (MANUAL) 1 % (0-2); LYMPHOCYTES % (MANUAL) 23 % (22-44); MAN.DIFF COMMENT-IMPRESSION MANUAL DIFFERENTIAL; MONOCYTES % (MANUAL) 3 % (2-9); PLATELET MORPHOLOGY COMMENT ADEQUATE; REACTIVE LYMPHOCYTES 2 % (0-0); SEGMENTED NEUTROPHILS % 70 % (40-70); TOTAL CELLS COUNTED 100
[2024-02-16 12:20] LABS: SARS-CoV-2, RNA, NAAT NEGATIVE SARS CoV-2 (NEGATIVE)
[2024-02-16 12:22] LABS: INFLUENZA TYPE A Negative For Type A (NEGATIVE); INFLUENZA TYPE B Negative For Type B (NEGATIVE)
[2024-02-16 12:23] LABS: HEMOGLOBIN A1C 7.1 % (4.0-6.0)
[2024-02-16] MEDS: CLOPIDOGREL 75MG TAB PO SCH (12:57)
[2024-02-16] MEDS: METOPROLOL SUCCINATE 50 MG TAB.SR.24H PO SCH (12:57)
[2024-02-16] MEDS: IPRATROPIUM 0.5 MG/2.5 ML INH IH SCH (13:49)
[2024-02-16 17:46] LABS: INR 0.95 (0.85-1.15); PROTHROMBIN TIME 11.2 SEC (9.6-11.6)
[2024-02-16 17:47] LABS: PARTIAL THROMBOPLASTIN TIME 30.5 SEC (26.3-35.5)
[2024-02-16] MEDS: INSULIN HUMULIN R 100 UNIT/ML 3ML SQ ONE (18:58)
[2024-02-16] MEDS: BUDESONIDE 0.5 MG/2 ML INH IH SCH (19:18)
[2024-02-16] MEDS: ASPIRIN 81MG CHEW TAB PO SCH (21:23)
[2024-02-16] MEDS: RANOLAZINE 500 MG TAB.SR.12H PO SCH (21:23)
[2024-02-16] MEDS: SACUBITRIL/VALSARTAN 1 EACH TABLET PO SCH (21:24)
[2024-02-16] MEDS: ATORVASTATIN 40 MG TABLET PO SCH (21:24)
[2024-02-16] MEDS: INSULIN HUMULIN R 100 UNIT/ML 3ML SQ SCH (21:26)
[2024-02-17] VITALS (13 sets, daily range): BP systolic 112–125; BP diastolic 56–68; PULSE 22–85; RESP 16–20; O2SAT 95–99
[2024-02-17 07:15] LABS: BASOPHILS # (AUTO) 0.02 K/uL (0.00-0.20); BASOPHILS % (AUTO) 0.2 % (0.0-5.0); EOSINOPHILS # (AUTO) 0.03 K/uL (0.00-0.70); EOSINOPHILS % (AUTO) 0.2 % (0.0-8.0); HEMATOCRIT 40.1 % (42-54); IMMATURE GRANULOCYTE ABSOLUTE 0.07 K/uL (0-1); LYMPHOCYTES # (AUTO) 2.7 K/uL (1.0-4.8); LYMPHOCYTES % (AUTO) 21.4 % (21.0-51.0); MEAN CORPUSCULAR HEMOGLOBIN 27.3 pg (27.0-33.0); MEAN CORPUSCULAR HGB CONC 33.9 g/dL (32.0-36.0); MEAN CORPUSCULAR VOLUME 80.5 fL (79-99); MONOCYTES # (AUTO) 0.8 K/uL (0.1-1.0); MONOCYTES % (AUTO) 6.1 % (3.0-13.0); NEUTROPHILS # (AUTO) 8.8 K/uL (1.8-7.7); NEUTROPHILS % (AUTO) 71.5 % (40.0-77.0); PLATELET COUNT (AUTO) 219 K/uL (130-400); RED BLOOD CELL COUNT(AUTO) 4.98 MIL/uL (4.50-6.20); RED CELL DISTRIBUTION WIDTH 15.1 % (11.0-15.5); WHITE BLOOD COUNT (AUTO) 12.4 K/uL (4.8-10.8)
[2024-02-17 07:18] LABS: CREATININE 1.1 mg/dL (0.5-1.3); POTASSIUM 4.2 mmol/L (3.5-5.1)
[2024-02-17] MEDS ORDERED: CLOPIDOGREL 75MG TAB PO SCH (09:00)
[2024-02-17] MEDS ORDERED: METOPROLOL SUCCINATE 50 MG TAB.SR.24H PO SCH (09:00)
[2024-02-18] VITALS: BP 122/69; PULSE 74; RESP 16
[2024-02-18 04:00] VITALS: BP 102/63; PULSE 75; RESP 16
[2024-02-18 06:54] VITALS: PULSE 79; RESP 18
[2024-02-18 06:56] VITALS: PULSE 79; RESP 18; O2SAT 97
[2024-02-18 08:00] VITALS: BP 109/61; PULSE 75; RESP 18; O2SAT 95
[2024-02-18] MEDS ORDERED: DOXY100T2 PO (10:23)
[2024-02-18] MEDS ORDERED: METH4TAB3 PO (10:23)
[2024-02-18] MEDS ORDERED: BUDE0.5A3 IH (10:23)
[2024-02-18] MEDS ORDERED: IPRNEB IH (10:23)
[2024-02-18 12:00] VITALS: BP 108/64; PULSE 70; RESP 18
== END 2024-02-18 14:30 | disposition home or self-care (01) ==
LOC: EDH 10:28 → INTOOBSV 10:29 → DIRECT 10:29 → 3BH 14:35
PROVIDERS: ADMIT Internal Medicine; ATTEND Internal Medicine
DX: I11.0 Hypertensive heart disease with heart failure (principal); Z20.822 Contact with and (suspected) exposure to COVID-19; I50.42 Chronic combined systolic (congestive) and diastolic (congestive) heart failure; I45.81 Long QT syndrome; I25.810 Atherosclerosis of coronary artery bypass graft(s) without angina pectoris; J20.9 Acute bronchitis, unspecified; E78.5 Hyperlipidemia, unspecified; I25.5 Ischemic cardiomyopathy; Z88.0 Allergy status to penicillin; Z79.82 Long term (current) use of aspirin; Z90.49 Acquired absence of other specified parts of digestive tract; Z95.5 Presence of coronary angioplasty implant and graft
CPT/HCPCS: 96365; 96375; 83036; 84443; 82550; 83735; 84484; 80053; 83880; 85025 ×2; 85610; 85730; 87804 ×2; 82948 ×8; 36415 ×2; 87635; 71045; 93005; 94640 ×9; 94664; 84145; 80048; J1956; J2920; G0378 ×21; J1815 ×3

== ENCOUNTER 2024-03-24 17:23 | Observation (INO) | payer MEDICARE ==
[~2024-03-24] VITALS: Ht 177.8 cm; Wt 84.8 kg
[~2024-03-24 17:23] MED LIST changes: -AEC81 PO; +ALBU6.7H14 IH; +BUDE0.5A3 IH; -CLOP-31 PO; +DOXY100T2 PO; -FURO40TA7 PO; +IPRNEB IH; +METH4TAB3 PO; -METO-391 PO
[2024-03-24 18:31] LABS: BASOPHILS # (AUTO) 0.04 K/uL (0.00-0.20); BASOPHILS % (AUTO) 0.4 % (0.0-5.0); EOSINOPHILS # (AUTO) 0.07 K/uL (0.00-0.70); EOSINOPHILS % (AUTO) 0.7 % (0.0-8.0); IMMATURE GRANULOCYTE ABSOLUTE 0.05 K/uL (0-1); LYMPHOCYTES # (AUTO) 2.3 K/uL (1.0-4.8); LYMPHOCYTES % (AUTO) 24.2 % (21.0-51.0); MEAN CORPUSCULAR HEMOGLOBIN 27.4 pg (27.0-33.0); MEAN CORPUSCULAR HGB CONC 33.5 g/dL (32.0-36.0); MEAN CORPUSCULAR VOLUME 81.8 fL (79-99); MONOCYTES # (AUTO) 0.7 K/uL (0.1-1.0); MONOCYTES % (AUTO) 7.1 % (3.0-13.0); NEUTROPHILS # (AUTO) 6.3 K/uL (1.8-7.7); NEUTROPHILS % (AUTO) 67.1 % (40.0-77.0); PLATELET COUNT (AUTO) 200 K/uL (130-400); RED BLOOD CELL COUNT(AUTO) 4.89 MIL/uL (4.50-6.20); WHITE BLOOD COUNT (AUTO) 9.5 K/uL (4.8-10.8)
[2024-03-24 18:47] LABS: ALBUMIN 3.5 g/dL (3.5-5.0); BILIRUBIN,TOTAL 0.6 mg/dL (0.2-1.0); CREATININE 1.1 mg/dL (0.5-1.3); TOTAL PROTEIN, SERUM 7.3 g/dL (6.0-8.3)
[2024-03-24 18:48] LABS: POTASSIUM 5.3 mmol/L (3.5-5.1)
[2024-03-24] MEDS ORDERED: HYDRALAZINE 20MG/ML VIAL IV PRN (22:00)
[2024-03-24] MEDS ORDERED: ACETAMINOPHEN 325 MG TAB PO PRN (22:00)
[2024-03-24] MEDS ORDERED: LACTULOSE 20 GM/30 ML UDCUP PO PRN (22:00)
[2024-03-24] MEDS ORDERED: GLUCAGON 1MG KIT 1 MG ML IM PRN (22:00)
[2024-03-24] MEDS ORDERED: ALBUTEROL 0.083% 2.5 MG/3 ML INH IH PRN (22:00)
[2024-03-24] MEDS ORDERED: ONDANSETRON 4MG INJ IVP PRN (22:00)
[2024-03-24] MEDS ORDERED: DEXTROSE 50%-WATER 50 ML DISP.SYRIN IV PRN (22:00)
[2024-03-24 22:28] LABS: INR <= 0.93 (0.85-1.15); PROTHROMBIN TIME 10.7 SEC (9.6-11.6)
[2024-03-24 22:29] LABS: PARTIAL THROMBOPLASTIN TIME 22.5 SEC (26.3-35.5)
[2024-03-24] MEDS: 0.9%NACL 1000ML 1,000 ML IV SCH (22:35)
[2024-03-24 22:44] LABS: D-DIMER 477 ng/mL (0-500)
[2024-03-24] MEDS ORDERED: ASPI-1005 PO (23:36)
[2024-03-24] MEDS ORDERED: SACU1TAB PO (23:36)
[2024-03-24] MEDS ORDERED: METO-391 PO (23:36)
[2024-03-25 06:51] LABS: BASOPHILS # (AUTO) 0.03 K/uL (0.00-0.20); BASOPHILS % (AUTO) 0.4 % (0.0-5.0); EOSINOPHILS # (AUTO) 0.07 K/uL (0.00-0.70); EOSINOPHILS % (AUTO) 0.9 % (0.0-8.0); HEMATOCRIT 36.1 % (42-54); IMMATURE GRANULOCYTE ABSOLUTE 0.03 K/uL (0-1); LYMPHOCYTES # (AUTO) 2.3 K/uL (1.0-4.8); LYMPHOCYTES % (AUTO) 27.9 % (21.0-51.0); MEAN CORPUSCULAR HEMOGLOBIN 27.6 pg (27.0-33.0); MEAN CORPUSCULAR HGB CONC 33.8 g/dL (32.0-36.0); MEAN CORPUSCULAR VOLUME 81.7 fL (79-99); MONOCYTES # (AUTO) 0.6 K/uL (0.1-1.0); MONOCYTES % (AUTO) 7.5 % (3.0-13.0); NEUTROPHILS # (AUTO) 5.1 K/uL (1.8-7.7); NEUTROPHILS % (AUTO) 62.9 % (40.0-77.0); PLATELET COUNT (AUTO) 177 K/uL (130-400); RED BLOOD CELL COUNT(AUTO) 4.42 MIL/uL (4.50-6.20); RED CELL DISTRIBUTION WIDTH 15.9 % (11.0-15.5); WHITE BLOOD COUNT (AUTO) 8.1 K/uL (4.8-10.8)
[2024-03-25 07:07] LABS: PHOSPHORUS 3.7 mg/dL (2.5-4.9); POTASSIUM 4.3 mmol/L (3.5-5.1)
[2024-03-25] MEDS: INSULIN HUMULIN R 100 UNIT/ML 3ML SQ SCH (07:26)
[2024-03-25] MEDS: FAMOTIDINE 20MG TAB PO SCH (08:52)
[2024-03-25] MEDS: ASPIRIN 81MG CHEW TAB PO SCH (08:52)
[2024-03-25] MEDS: DOCUSATE SODIUM 100 MG CAP PO SCH (08:52)
[2024-03-25 10:25] VITALS: BP 151/78; PULSE 76; RESP 20
[2024-03-25 10:30] VITALS: O2SAT 96
[2024-03-25 11:00] VITALS: BP 149/79; PULSE 90; RESP 20
[2024-03-25 14:37] LABS: HEMOGLOBIN A1C 7.9 % (4.0-6.0)
[2024-03-25 16:00] VITALS: BP 137/73; PULSE 71; RESP 22
[2024-03-25] MEDS: NAPROXEN 250 MG TAB PO ONE (18:47)
[2024-03-25 20:00] VITALS: BP 125/55; PULSE 75; RESP 20; O2SAT 96
[2024-03-25] MEDS: SACUBITRIL/VALSARTAN 1 EACH TABLET PO SCH (20:29)
[2024-03-25] MEDS: METOPROLOL SUCCINATE 50 MG TAB.SR.24H PO SCH (20:30)
[2024-03-25] MEDS: RANOLAZINE 500 MG TAB.SR.12H PO SCH (20:30)
[2024-03-25] MEDS: ATORVASTATIN 40 MG TABLET PO SCH (20:30)
[2024-03-25 23:45] VITALS: BP 145/51; PULSE 72; RESP 22
[2024-03-26 03:45] VITALS: BP 128/76; PULSE 63; RESP 21
[2024-03-26 04:04] LABS: BASOPHILS # (AUTO) 0.04 K/uL (0.00-0.20); BASOPHILS % (AUTO) 0.5 % (0.0-5.0); EOSINOPHILS # (AUTO) 0.07 K/uL (0.00-0.70); EOSINOPHILS % (AUTO) 0.9 % (0.0-8.0); HEMATOCRIT 38.6 % (42-54); IMMATURE GRANULOCYTE ABSOLUTE 0.04 K/uL (0-1); LYMPHOCYTES # (AUTO) 2.3 K/uL (1.0-4.8); LYMPHOCYTES % (AUTO) 28.2 % (21.0-51.0); MEAN CORPUSCULAR HGB CONC 32.9 g/dL (32.0-36.0); MONOCYTES # (AUTO) 0.6 K/uL (0.1-1.0); NEUTROPHILS # (AUTO) 5.2 K/uL (1.8-7.7); NEUTROPHILS % (AUTO) 62.9 % (40.0-77.0); PLATELET COUNT (AUTO) 181 K/uL (130-400); RED BLOOD CELL COUNT(AUTO) 4.54 MIL/uL (4.50-6.20); RED CELL DISTRIBUTION WIDTH 15.9 % (11.0-15.5); WHITE BLOOD COUNT (AUTO) 8.2 K/uL (4.8-10.8)
[2024-03-26 04:15] LABS: CREATININE 1.1 mg/dL (0.5-1.3); POTASSIUM 4.8 mmol/L (3.5-5.1)
[2024-03-26 07:49] VITALS: BP 135/76; PULSE 69; RESP 20
[2024-03-26 08:00] VITALS: O2SAT 96
[2024-03-26] MEDS: CLOPIDOGREL 75MG TAB PO SCH (09:00)
== END 2024-03-26 10:14 | disposition home or self-care (01) ==
LOC: EDH 17:23 → EDHIP 21:36 → 2DH 03-25 10:25
PROVIDERS: ADMIT Internal Medicine; ATTEND Internal Medicine
DX: T82.119A Breakdown (mechanical) of unspecified cardiac electronic device, initial encounter (principal); E87.5 Hyperkalemia; E86.0 Dehydration; I25.709 Atherosclerosis of coronary artery bypass graft(s), unspecified, with unspecified angina pectoris; I11.0 Hypertensive heart disease with heart failure; I50.42 Chronic combined systolic (congestive) and diastolic (congestive) heart failure; R94.31 Abnormal electrocardiogram [ECG] [EKG]; I25.5 Ischemic cardiomyopathy; I25.2 Old myocardial infarction; E11.9 Type 2 diabetes mellitus without complications; E78.00 Pure hypercholesterolemia, unspecified; Z79.02 Long term (current) use of antithrombotics/antiplatelets; Z79.82 Long term (current) use of aspirin; Z79.899 Other long term (current) drug therapy; Z95.5 Presence of coronary angioplasty implant and graft; Z95.810 Presence of automatic (implantable) cardiac defibrillator; Z88.0 Allergy status to penicillin; Y71.2 Prosthetic and other implants, materials and accessory cardiovascular devices associated with adverse incidents
CPT/HCPCS: 96360; 96361 ×2; 99285; 83735 ×2; 84484 ×3; 80053; 85025 ×3; 85378; 85610; 85730; 36415 ×3; 71045; 93005; 83036; 84100; 80061; 80048 ×2; 82948 ×5; 82306; 93306; 93356; G0378 ×34; J7030; J1815

== ENCOUNTER 2024-06-14 07:24 | Emergency (ER) | payer MEDICARE ==
[~2024-06-14 07:24] MED LIST changes: -ALBU6.7H14 IH; +ASPI-1005 PO; -ASPI-1197 PO; -BUDE0.5A3 IH; -DOXY100T2 PO; -IPRNEB IH; -METH4TAB3 PO; +METO-391 PO; -METO50TA9 PO; -SPIR25TA6 PO
[2024-06-14 07:52] LABS: BASOPHILS # (AUTO) 0.04 K/uL (0.00-0.20); BASOPHILS % (AUTO) 0.5 % (0.0-5.0); EOSINOPHILS % (AUTO) 1.2 % (0.0-8.0); HEMATOCRIT 41.1 % (42-54); IMMATURE GRANULOCYTE ABSOLUTE 0.01 K/uL (0-1); LYMPHOCYTES # (AUTO) 2.2 K/uL (1.0-4.8); LYMPHOCYTES % (AUTO) 26.2 % (21.0-51.0); MEAN CORPUSCULAR HEMOGLOBIN 27.8 pg (27.0-33.0); MEAN CORPUSCULAR HGB CONC 34.1 g/dL (32.0-36.0); MEAN CORPUSCULAR VOLUME 81.7 fL (79-99); MONOCYTES # (AUTO) 0.7 K/uL (0.1-1.0); MONOCYTES % (AUTO) 7.7 % (3.0-13.0); NEUTROPHILS # (AUTO) 5.4 K/uL (1.8-7.7); NEUTROPHILS % (AUTO) 64.3 % (40.0-77.0); PLATELET COUNT (AUTO) 195 K/uL (130-400); RED BLOOD CELL COUNT(AUTO) 5.03 MIL/uL (4.50-6.20); RED CELL DISTRIBUTION WIDTH 15.2 % (11.0-15.5); WHITE BLOOD COUNT (AUTO) 8.5 K/uL (4.8-10.8)
[2024-06-14 08:03] LABS: INR 0.97 (0.85-1.15); PROTHROMBIN TIME 10.5 SEC (9.6-11.6)
[2024-06-14 08:04] LABS: PARTIAL THROMBOPLASTIN TIME 26.2 SEC (26.3-35.5)
[2024-06-14 08:09] LABS: ALBUMIN 3.5 g/dL (3.5-5.0); BILIRUBIN,TOTAL 0.6 mg/dL (0.2-1.0); CREATININE 1.1 mg/dL (0.5-1.3); MAGNESIUM 1.9 mg/dL (1.80-2.40); POTASSIUM 4.1 mmol/L (3.5-5.1); TOTAL PROTEIN, SERUM 6.8 g/dL (6.0-8.3)
[2024-06-14 08:32] LABS: APPEARANCE,URINE CLEAR (CLEAR); BILIRUBIN,URINE NEGATIVE (NEGATIVE); COLOR,URINE YELLOW (YELLOW); GLUCOSE, URINE (UA) NEGATIVE (NEGATIVE); KETONES,URINE NEGATIVE (NEGATIVE); LEUKOCYTE ESTERASE ,URINE NEGATIVE Leu/uL (NEGATIVE); NITRATE,URINE NEGATIVE (NEGATIVE); OCCULT BLOOD,URINE NEGATIVE (NEGATIVE); PH,URINE 5.5 (5.0-8.0); PROTEIN,URINE 10 mg/dL (NEGATIVE); UROBILINOGEN,URINE 0.2 mg/dL (0.2-1.0)
[2024-06-14] MEDS: LACTATED RINGERS 1000ML 1,000 ML IV ONE (08:37)
[2024-06-14] MEDS: ASPIRIN 81MG CHEW TAB PO ONE (08:37)
[2024-06-14 08:53] LABS: ADD UA MICROSCOPIC YES
[2024-06-14 09:17] LABS: MUCUS,URINE RARE LPF (None Seen)
[2024-06-14 11:47] VITALS: BP 112/59; PULSE 62; RESP 16; O2SAT 99
== END 2024-06-14 11:49 | disposition home or self-care (01) ==
LOC: EDH 07:24
DX: I20.9 Angina pectoris, unspecified (principal); I10 Essential (primary) hypertension; E78.00 Pure hypercholesterolemia, unspecified; Z79.82 Long term (current) use of aspirin; Z79.899 Other long term (current) drug therapy; Z98.890 Other specified postprocedural states
CPT/HCPCS: 99285; 96360; 96361; 71045; 83735; 84484 ×2; 80053; 85025; 85610; 85730; 36415; 93005 ×2; J7120

== ENCOUNTER 2024-12-05 08:43 | Day surgery (SDC) | payer MEDICARE ==
[2024-12-01 10:21] LABS: BASOPHILS # (AUTO) 0.05 K/uL (0.00-0.20); BASOPHILS % (AUTO) 0.5 % (0.0-5.0); EOSINOPHILS # (AUTO) 0.85 K/uL (0.00-0.70); EOSINOPHILS % (AUTO) 8.9 % (0.0-8.0); HEMATOCRIT 41.8 % (42-54); IMMATURE GRANULOCYTE ABSOLUTE 0.03 K/uL (0-1); LYMPHOCYTES # (AUTO) 2.2 K/uL (1.0-4.8); LYMPHOCYTES % (AUTO) 22.8 % (21.0-51.0); MEAN CORPUSCULAR HEMOGLOBIN 28.5 pg (27.0-33.0); MEAN CORPUSCULAR HGB CONC 33.3 g/dL (32.0-36.0); MEAN CORPUSCULAR VOLUME 85.7 fL (79-99); MONOCYTES # (AUTO) 0.6 K/uL (0.1-1.0); MONOCYTES % (AUTO) 6.6 % (3.0-13.0); NEUTROPHILS # (AUTO) 5.8 K/uL (1.8-7.7); NEUTROPHILS % (AUTO) 60.9 % (40.0-77.0); PLATELET COUNT (AUTO) 200 K/uL (130-400); RED BLOOD CELL COUNT(AUTO) 4.88 MIL/uL (4.50-6.20); RED CELL DISTRIBUTION WIDTH 14.6 % (11.0-15.5); WHITE BLOOD COUNT (AUTO) 9.6 K/uL (4.8-10.8)
[2024-12-01 10:35] LABS: INR <= 0.93 (0.85-1.15); PROTHROMBIN TIME 10.4 SEC (9.6-11.6)
[2024-12-01 10:36] LABS: PARTIAL THROMBOPLASTIN TIME 26.5 SEC (26.3-35.5)
[2024-12-01 10:48] VITALS: BP 127/73; PULSE 82; RESP 16; TEMP 97.9
[2024-12-01 11:00] LABS: POTASSIUM 4.4 mmol/L (3.5-5.1)
--- NOTE | 2024-12-01 11:28 | EKG ---
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
[~2024-12-05] VITALS: Ht 175.3 cm; Wt 85.3 kg
[2024-12-05 08:45] VITALS: BP 140/75; PULSE 64; RESP 17; TEMP 97.6
[2024-12-05] MEDS: 0.9%NACL 1000ML 1,000 ML IV SCH (09:27)
[2024-12-05] MEDS ORDERED: LIDOCAINE HCL 1% MDV 50ML VIAL ONE (12:02)
[2024-12-05] MEDS ORDERED: BUPIvacaine/PF 0.25% 30ML VIAL IJ ONE (12:03)
[2024-12-05] MEDS ORDERED: ceFAZolin SODIUM 1 GM VIAL ONE (12:03)
--- NOTE | 2024-12-05 16:48 | PN ---
This [facility] and had a device interrogation that was consistent with BRADLEY parameters. The patient came to the hospital, scheduled for device change out. We now brought the patient to the catheterization laboratory technician. Device interrogation confirmed more than 59%-60% battery life. This was checked by the manufacturer's service representative from the company as well as myself. Given that, I elected not to proceed with any device change out at this time. The patient will be sent back to the office and we will have an appointment for additional evaluation and further management modalities as guided by additional assessment. TID: [id number] RECEIPT: [id number]
== END 2024-12-05 12:45 | disposition home or self-care (01) ==
LOC: DAH 08:43
PROVIDERS: ATTEND Internal Medicine Cardiovascular Disease
DX: I25.5 Ischemic cardiomyopathy (principal); Z53.9 Procedure and treatment not carried out, unspecified reason; I10 Essential (primary) hypertension; I25.10 Atherosclerotic heart disease of native coronary artery without angina pectoris; K21.9 Gastro-esophageal reflux disease without esophagitis; E78.5 Hyperlipidemia, unspecified; Z79.01 Long term (current) use of anticoagulants; Z88.0 Allergy status to penicillin; Z79.899 Other long term (current) drug therapy; Z98.890 Other specified postprocedural states
CPT/HCPCS: 80048; 85025; 85610; 85730; 36415; 93005; 82948; A4223 ×3; J7030; A4215; A4222; A4221; A4663; A4216; A4606; J0690; J3490; J0665

== ENCOUNTER 2025-01-01 22:05 | Observation (INO) | payer MEDICARE ==
[~2025-01-01] VITALS: Ht 177.8 cm; Wt 86.2 kg
[2025-01-01 22:36] LABS: BASOPHILS # (AUTO) 0.04 K/uL (0.00-0.20); BASOPHILS % (AUTO) 0.5 % (0.0-5.0); EOSINOPHILS % (AUTO) 15.3 % (0.0-8.0); HEMATOCRIT 35.6 % (42-54); IMMATURE GRANULOCYTE ABSOLUTE 0.02 K/uL (0-1); LYMPHOCYTES # (AUTO) 2.3 K/uL (1.0-4.8); LYMPHOCYTES % (AUTO) 29.7 % (21.0-51.0); MEAN CORPUSCULAR HEMOGLOBIN 28.2 pg (27.0-33.0); MEAN CORPUSCULAR HGB CONC 33.7 g/dL (32.0-36.0); MEAN CORPUSCULAR VOLUME 83.6 fL (79-99); MONOCYTES # (AUTO) 0.6 K/uL (0.1-1.0); MONOCYTES % (AUTO) 7.4 % (3.0-13.0); NEUTROPHILS # (AUTO) 3.7 K/uL (1.8-7.7); NEUTROPHILS % (AUTO) 46.8 % (40.0-77.0); PLATELET COUNT (AUTO) 194 K/uL (130-400); RED BLOOD CELL COUNT(AUTO) 4.26 MIL/uL (4.50-6.20); RED CELL DISTRIBUTION WIDTH 14.6 % (11.0-15.5); WHITE BLOOD COUNT (AUTO) 7.9 K/uL (4.8-10.8)
[2025-01-01 22:43] LABS: CREATININE 1.2 mg/dL (0.5-1.3); POTASSIUM 3.6 mmol/L (3.5-5.1)
[2025-01-01 23:06] LABS: B-TYPE NATRIURETIC PEPTIDE 89 pg/mL (0-100)
--- NOTE | 2025-01-02 00:44 | ERN ---
ED Note History of Present Illness Stated Complaint: CHEST PAIN Chief Complaint: Chest Pain Time Seen by MD: 22:30 Dictation: 73-year-old presents to the ED with left-sided chest pain that started at about 9:30 p.m.. He reports it as a stabbing chest pain that lasted approximately an hour. He was eating dinner and watching TV when he began experiencing the severe pain he denied any diaphoresis presyncopal symptoms. He has a slight dry cough.. Patient states that the pain is a 9/10 on the pain scale, but is currently comfortable. Patient states that during the onset of the chest pain, there was radiation to his left arm. The patient states that he had nausea during the onset of pain. Patient denies vomiting, fever, chills, shortness of breath. Patient states that last week, he had crushing chest pain but did not seek medical attention. He denies any tenderness of the chest wall and states that the pain is coming from deep inside Temperature 96.6 pulse 70 respirations 18 blood pressure 143/97 with a pulse oximetry of 97%. His other medical problems include coronary artery disease, pacemaker/defibrillator, history of [place] in the past, hypertension, hypercholesterolemia Allergies: Coded Allergies: Penicillins (Unverified Allergy, Unknown, 01/08/17) Home Meds Reported Medications Sacubitril/Valsartan (Entresto 24 mg-26 mg Tablet) 24 Mg-26 Mg Tablet, 1 EACH PO BID, TAB 03/24/24 Aspirin (ASPIRIN 81MG CHEW TAB) 81 Mg Tab.chew, 81 MG PO DAILY, TAB.CHEW 03/24/24 Metoprolol Succinate (Metoprolol Succinate) 50 Mg Tab.er.24h, 50 MG PO BID, TAB 03/24/24 Clopidogrel Bisulfate (Clopidogrel) 75 Mg Tablet, 75 MG PO DAILY, TAB 04/02/23 Ranolazine (Ranolazine ER) 1,000 Mg Tab.er.12h, 1000 MG PO BID, TAB 04/02/23 Atorvastatin Calcium (Atorvastatin Calcium) 80 Mg Tablet, 80 MG PO HS, TAB 01/17/20 Past Medical History Past Medical History: High Cholesterol, Hypertension, [place] Surgical History: Appendectomy, CABG, Pacer/AICD Family History: Negative Social History: Negative, Lives with family RN Note Reviewed/Agreed w/PFSH: Yes Review of System Dictation Constitutional: Negative for fever,chills, and weight loss Eyes: Negative for injury, pain,redness, and discharge ENT: Negative for injury,pain or swelling Cardiovascular: Positive for chest pain, palpitations, and edema Respiratory: Negative for shortness of breath, cough, and wheezing, Abdomen/GI: Negative for abdominal pain, nausea, vomiting, diarrhea, and constipation Back: Negative for injury and pain : Negative for injury, bleeding and discharge MS/Extremity: Negative for injury and deformity Skin: Negative for rash, and discoloration Neuro: Negative for headache, weakness, numbness, tingling, and seizure Psych: Negative for suicide ideation, homicidal ideation, and hallucinations Initial Vital Sign VS Vital Signs Date Time Temp Pulse Resp B/P (MAP) Pulse Ox O2 Delivery O2 Flow Rate FiO2 01/01/25 22:07 96.6 70 18 143/77 98 Room Air 01/01/25 23:20 0 21 Physical Exam Dictation General: awake, alert, NAD Head/Face: Normocephalic, atraumatic Eyes: PERRL, EOMI, vision at baseline ENT: oral cavity clear, TMs clear, no signs of infection Neck: Trachea midline, supple, no nuchal rigidity Cardiovascular: RRR, normal S1/S2, No MRGs, no JVD Respiratory: CTAB, no respiratory distress, No rales or wheezes Abdomen: Soft, non-tender, non-distended, normal bowel sounds, no guarding or rebound. Skin: Warm, dry, normal turgor, no rash MS/Extremity: Pulses equal, no cyanosis, neurovascular intact, FROM Neuro: COAx4, GCS 15, strength 5/5, CN 2-12 intact, normal cerebellar exam, normal gait, Psych: Normal behavior, mood, and affect normal Extremities-trace edema without any palpable cords, Homans sign is negative Results (Laboratory/Radiology) Laboratory/Radiology Laboratory Tests Test 01/01/25 22:28 01/01/25 22:46 White Blood Count 7.9 K/uL (4.8-10.8) Red Blood Count 4.26 MIL/uL (4.50-6.20) L Hemoglobin 12.0 g/dL (14.0-18.0) L Hematocrit 35.6 % (42-54) L Mean Corpuscular Volume 83.6 fL (79-99) Mean Corpuscular Hemoglobin 28.2 pg (27.0-33.0) Mean Corpuscular Hemoglobin Concent 33.7 g/dL (32.0-36.0) Red Cell Distribution Width 14.6 % (11.0-15.5) Platelet Count 194 K/uL (130-400) Mean Platelet Volume 10.8 fL (7.5-10.5) H Immature Granulocyte % (Auto) 0.3 % (0-1) Neutrophils (%) (Auto) 46.8 % (40.0-77.0) Lymphocytes (%) (Auto) 29.7 % (21.0-51.0) Monocytes (%) (Auto) 7.4 % (3.0-13.0) Eosinophils (%) (Auto) 15.3 % (0.0-8.0) H Basophils (%) (Auto) 0.5 % (0.0-5.0) Neutrophils # (Auto) 3.7 K/uL (1.8-7.7) Lymphocytes # (Auto) 2.3 K/uL (1.0-4.8) Monocytes # (Auto) 0.6 K/uL (0.1-1.0) Eosinophils # (Auto) 1.20 K/uL (0.00-0.70) H Basophils # (Auto) 0.04 K/uL (0.00-0.20) Absolute Immature Granulocyte (auto 0.02 K/uL (0-1) Nucleated Red Blood Cells 0.0 % (0.0-0.19) White Cell Morphology Comment See comments Sodium Level 137 mmol/L (136-145) Potassium Level 3.6 mmol/L (3.5-5.1) Chloride Level 104 mmol/L (101-111) Carbon Dioxide Level 27 mmol/L (21-32) Blood Urea Nitrogen 17 mg/dL (7-18) Creatinine 1.2 mg/dL (0.5-1.3) Glomerular Filtration Rate Calc 63 mL/min (>90) Random Glucose 150 mg/dL (70-105) H Total Calcium 8.1 mg/dL (8.5-10.1) L Total Creatine Kinase 57 U/L (21-232) # B-Type Natriuretic Peptide 89 pg/mL (0-100) Troponin I < 0.05 ng/mL (0.00-0.05) Labs Reviewed?: Yes ED Course ED Course Orders Procedure Category Date Status Time Vital Signs Per CPOE 01/01/25 Transmitted Routine 22:09 B-Type Natriuretic LAB 01/01/25 Complete Peptide 22:09 Chest 1vw RAD 01/01/25 Taken 22:09 12 Lead Ekg Tracing- EKG 01/01/25 Logged Technical 22:09 Oxygen By Nc/Pulse Ox CPOE 01/01/25 Transmitted 22:09 Maintain Iv CPOE 01/01/25 Transmitted 22:09 Iv Insertion CPOE 01/01/25 Transmitted 22:09 Cardiac Monitoring CPOE 01/01/25 Transmitted 22:09 Pulse Oximetry With CPOE 01/01/25 Transmitted Vs And Prn 22:09 Cbc With Differential LAB 01/01/25 Complete 22:09 Activity: Br W/Brp CPOE 01/01/25 Transmitted With Assist 22:09 Creatine Kinase, Total LAB 01/01/25 Complete 22:09 Troponin I High LAB 01/01/25 In Process Sensitivity 22:09 Urinalysis Profile LAB 01/01/25 Logged 22:09 Troponin Poc Order LAB 01/01/25 Complete Only 22:09 Bedside Troponin-I LAB.ER 01/01/25 In Process (Poc) 22:09 Basic Metabolic Panel LAB 01/01/25 Complete 22:09 Edm Admit Bridge Order ADM 01/02/25 Transmitted 00:50 Vital Signs Date Time Temp Pulse Resp B/P (MAP) Pulse Ox O2 Delivery O2 Flow Rate FiO2 01/02/25 00:26 63 18 126/68 100 Room Air* 0 21 01/01/25 23:20 64 18 127/68 98 Room Air* 0 21 01/01/25 22:07 96.6 70 18 143/77 98 Room Air We will perform diagnostic labs, advanced imaging and administer medications according to the patient's complaint. Once the results are available, will revi ew and personally interpreted the labs to rule out any acute life-threatening emergency the trach require immediate intervention and treatment. I will then re-evaluate the patient after treatment and diagnostic exams have return to determine whether the patient requires any further testing, can safely be discharged home or need further admission to hospital for additional treatment and evaluation. Reviewed CBC BNP 7 are within normal limits brain natriuretic peptide is 89 chest x-ray is unremarkable for any acute infiltrate With known history of severe CAD and recurrent chest pains with multiple risk factors, I recommended that he be admitted to the hospital to evaluate for the progressive coronary artery disease. His device was interrogated last week at Odalys Salguero's office Patient accepted by [facility] level provider for [facility] hospitalist group Medical Decision Making MDM MDM: Differential diagnosis: Chest pain-unstable angina, chest wall pain, gastroesophageal reflux disease Rationale: Tests considered and ordered secondary to shared decision making include: labs, ECG and radiology Previous outside records reviewed: Old ER visits. Risk of complication and/or morbidity or mortality of patient management: None Medications-Per medication reconciliation Need for hospitalization: Patient does meet criteria for hospitalization. Need for emergency major/minor surgery: No There are no social concerns with this patient. Prescription drug management Prescriptions will include symptomatic care Patient's prior external medical records from other ER visits were reviewed by me as indicated. Prior testing and results from previous visits were reviewed. Prior tests were taken into account with medical decision making and resource utilization, independent historian/historians were used to obtain complete medical history. I independently interpreted the test that were performed, results were reviewed by me and considered findings on radiology if ordered. Medical management and examination interpretation discussions were had by me with other qualified healthcare professionals as indicated for the patient's care. Problem List Problem List: (1) Chest pain due to CAD (2) CAD (coronary artery disease) DX & DISP Disposition: Inpatient Decision to Admit Time: 00:35 Departure Impression: Primary Impression: Chest pain due to CAD Additional Impression: CAD (coronary artery disease) Condition: Stable Additional Instructions: Patient was informed of all the diagnostic labs and procedures conducted in the emergency room today and demonstrated understanding of the results. I personally reviewed and interpreted all the diagnostic exams performed in the ER today. The patient will be admitted to the hospital for further treatment and evaluation. Disposition-admit to facility Condition-stable/guarded Course-uncertain at this time Pain status-decreased Assessment-exam unchanged Admission Certification- I certify that the patients status is appropriate and is based on my best clinical judgment and the patient's condition as documented in the medical records Referrals: JARAD GARZA MD (PCP) MANUELA BEVERLY MD Jan 02, 2025 00:44
[2025-01-02] MEDS ORDERED: LAbetaLOL 20MG SYG IV PRN (01:00)
[2025-01-02] MEDS ORDERED: PoTASSium chloRIDE 20MEQ ER 20 MEQ ERTAB PO PRN (01:00)
[2025-01-02] MEDS ORDERED: NITROGLYCERIN 0.4 MG SL TAB SL PRN (01:00)
[2025-01-02] MEDS ORDERED: acetaMINOPHEN 325 MG TAB PO PRN (01:00)
[2025-01-02] MEDS ORDERED: PoTASSium chl 10% ELIXIR 20MEQ 20 MEQ/15 ML UDCUP PO PRN (01:00)
[2025-01-02] MEDS ORDERED: ondanSETRON 4MG INJ IVP PRN (01:00)
[2025-01-02] MEDS ORDERED: BENZONATATE 100 MG CAPSULE PO PRN (01:00)
[2025-01-02] MEDS ORDERED: LACTULOSE 20 GM/30 ML UDCUP PO PRN (01:00)
[2025-01-02] MEDS ORDERED: MAGNESIUM 2GM PREMIX 50ML 50 ML IV PRN (01:00)
--- NOTE | 2025-01-02 01:01 | HP ---
[facility] HISTORY & PHYSICAL Date Patient Seen: Jan 02, 2025 Time of Visit: 0200 Supervising Physician: Dr. Schuyler Anton ] Primary Care Physician: [Dr. Reuben Wakefield] Outpatient Specialists: [Dr. Salguero-cardio] Inpatient Consults: [ ] PROBLEM LIST: Chest pain at rest; likely unstable angina:POA CAD s/p CABG x5 in 2001, PTCA and stent procedures including PTCA and stenting of the saphenous vein graft to the RCA, PTCA and stenting of the left main into the OM1 05/07/2017, PTCA and stenting of the saphenous vein graft to the PDA 08/16/2019 AICD in situ, implanted on 12/2019, Biotronik Chronic combined congestive heart failure, LVEF is 40-45% 02/2024 History of CABG x5 History of acute inferior ST segment elevation [place] September 2022 with cardiac catheterization 10/07/2022 demonstrating an acute thrombotic occlusion of the saphenous vein graft to the PDA with multiple prior stents Moderate ischemic cardiomyopathy with HX of prolonged QTc History of hypertension History of hyperlipidemia HX of bronchitis HX of Community Acquired PNA Type 2 diabetes mellitus with hemoglobin A1c of 7.9 on 03/25/24 PLAN: -Admit to medsurg telemetry -ACS risk stratification: TSH, lipid panel and HgA1c -Obtain echo in am -Continue to monitor and trend troponin and EKG -Manage CP PRN -Decision to initiate therapeutic anticoagulation pending uptrending troponin, worsening chest pain and EKG changes -Resumed home med ASA, Plavix, Entresto, statin, Ranexa and Metoprolol -Interrogate AICD on this admission, instructed RN -Obtain Covid and flu screen, CXR pending results HPI: [Patient is a 74-year-old male with PMH significant for CAD s/p CABG x 5 and stents, DM, HLD, cardiomyopathy s/p AICD, HTN, and chronic angina who has presented to the ED accompanied by his concerning acute onset chest 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 He said he was resting and watching TV when he suddenly felt a poking pain of 8-9 scale in the middle of his chest without radiation or migration and no known provocation. It lasted for about an hour. He simultaneously experienced dry cough and nausea. He reports that 2 weeks ago, he suddenly experienced feeling cold and numb on his left arm which eventually went away without interventions. His AICD was recently checked with good battery life. He took 2 ASA prior to going to ED and by the time he presented himself at the triage, his pain was gone already. He denies other constitutional symptoms. Labworks including troponin was unremarkable, EKG was negative for acute findings. CXR is pending result. Physical assessment was unrevealing without reproducible chest tenderness, endorses ZERO pain. Goals of care were discussed with the patient verbalizing understanding and agreement. PAST MEDICAL HX: see above PAST SURGICAL HX: see above SOCIAL HISTORY: No tobacco, ETOH, or illicit drug use Coded Allergies: Penicillins (Unverified Allergy, Unknown, 01/08/17) REVIEW OF SYSTEMS: 12 point ROS reviewed with patient. Pertinent positives mentioned above. Otherwise negative. PHYSICAL EXAM: GENERAL: alert, weak, awake oriented x 3 HEENT: EOMI, Sclera non icteric, moist mucosa NECK: Supple, no JVD, trachea midline LUNGS: Clear breath sounds bilaterally. No wheezes HEART: Regular rate and rhythm. Normal S1 and S2, without murmurs ABD: Abdomen soft, nontender. Bowel sounds present EXT: No clubbing cyanosis or edema NEURO: Alert and oriented to person, follows commands Vital Signs (last 8hr) Date Time Temp Pulse Resp B/P (MAP) Pulse Ox O2 Delivery O2 Flow Rate FiO2 01/02/25 00:26 63 18 126/68 100 Room Air* 0 21 01/01/25 23:20 64 18 127/68 98 Room Air* 0 21 01/01/25 22:07 96.6 70 18 143/77 98 Room Air LABS: Hematology Labs: Test 01/01/25 22:28 Range/Units White Blood Count 7.9 4.8-10.8 K/uL Red Blood Count 4.26 L 4.50-6.20 MIL/uL Hemoglobin 12.0 L 14.0-18.0 g/dL Hematocrit 35.6 L 42-54 % Mean Corpuscular Volume 83.6 79-99 fL Mean Corpuscular Hemoglobin 28.2 27.0-33.0 pg Mean Corpuscular Hemoglobin Concent 33.7 32.0-36.0 g/dL Red Cell Distribution Width 14.6 11.0-15.5 % Platelet Count 194 130-400 K/uL Mean Platelet Volume 10.8 H 7.5-10.5 fL Immature Granulocyte % (Auto) 0.3 0-1 % Neutrophils (%) (Auto) 46.8 40.0-77.0 % Lymphocytes (%) (Auto) 29.7 21.0-51.0 % Monocytes (%) (Auto) 7.4 3.0-13.0 % Eosinophils (%) (Auto) 15.3 H 0.0-8.0 % Basophils (%) (Auto) 0.5 0.0-5.0 % Neutrophils # (Auto) 3.7 1.8-7.7 K/uL Lymphocytes # (Auto) 2.3 1.0-4.8 K/uL Monocytes # (Auto) 0.6 0.1-1.0 K/uL Eosinophils # (Auto) 1.20 H 0.00-0.70 K/uL Basophils # (Auto) 0.04 0.00-0.20 K/uL Absolute Immature Granulocyte (auto 0.02 0-1 K/uL Nucleated Red Blood Cells 0.0 0.0-0.19 % White Cell Morphology Comment See comments Chemistry Labs: Test 01/01/25 22:46 01/01/25 22:28 Range/Units Troponin I < 0.05 0.00-0.05 ng/mL Sodium Level 137 136-145 mmol/L Potassium Level 3.6 3.5-5.1 mmol/L Chloride Level 104 101-111 mmol/L Carbon Dioxide Level 27 21-32 mmol/L Blood Urea Nitrogen 17 7-18 mg/dL Creatinine 1.2 0.5-1.3 mg/dL Glomerular Filtration Rate Calc 63 >90 mL/min Random Glucose 150 H 70-105 mg/dL Total Calcium 8.1 L 8.5-10.1 mg/dL Total Creatine Kinase 57 # 21-232 U/L Troponin I High Sensitivity 5 4-75 ng/L B-Type Natriuretic Peptide 89 0-100 pg/mL DIAGNOSTICS / RADIOLOGY RESULTS: [ ] PLAN NEURO: Minimize central acting medications as possible. Maintain fall precautions, adequate lighting during the day PULMONARY: Supplemental 02 as needed. Maintain aspiration precautions at all times CARDIOVASCULAR: Follow hemodynamics. Vital signs per facility protocol GI & NUTRITION: Continue with nutritional support. Continue stool softeners and laxatives as needed. KIDNEYS & ELECTROLYTES: Strict monitoring of intake, output and overall fluid balance. Avoid nephrotoxic medications to the extent possible. Medications to be dosed according to renal function. Monitor electrolytes and replace as needed ENDOCRINE: Maintain blood glucose between 100-180 at all times. Hypoglycemia protocol in place INFECTIOUS DISEASE: Trend temperature, WBC and procalcitonin level Follow cultures, deescalate antibiotics as soon as possible. Panculture if new onset fever ONCOLOGY/HEMATOLOGY/COAGULATION: Monitor for s/s of bleeding Monitor hemoglobin, coagulation studies as needed SKIN: Pressure ulcer prevention per facility protocol Specialty mattress ORTHO/REHAB: Continue PT/OT Prophylaxis: Continue GI and DVT prophylaxis Code Status: Full Resuscitation Disposition: TBD Other: Total patient care time: 35 minutes JOVANY LARIOS Jan 02, 2025 01:01
[2025-01-02 02:51] LABS: COVID19 (SARS ANTIGEN RAPID) PRESUMPTIVE NEGATIVE (NEGATIVE); INFLUENZA TYPE A Negative For Type A (NEGATIVE); INFLUENZA TYPE B Negative For Type B (NEGATIVE)
--- NOTE | 2025-01-02 05:31 | EKG ---
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
[2025-01-02 06:47] LABS: ADD UA MICROSCOPIC NO; APPEARANCE,URINE CLEAR (CLEAR); BILIRUBIN,URINE NEGATIVE (NEGATIVE); COLOR,URINE LIGHT-YELLOW (YELLOW); GLUCOSE, URINE (UA) NEGATIVE (NEGATIVE); KETONES,URINE NEGATIVE (NEGATIVE); LEUKOCYTE ESTERASE ,URINE NEGATIVE Leu/uL (NEGATIVE); NITRATE,URINE NEGATIVE (NEGATIVE); OCCULT BLOOD,URINE NEGATIVE (NEGATIVE); PH,URINE 5.5 (5.0-8.0); PROTEIN,URINE NEGATIVE (NEGATIVE); UROBILINOGEN,URINE 0.2 mg/dL (0.2-1.0)
[2025-01-02 06:48] LABS: BASOPHILS # (AUTO) 0.04 K/uL (0.00-0.20); BASOPHILS % (AUTO) 0.6 % (0.0-5.0); EOSINOPHILS # (AUTO) 1.24 K/uL (0.00-0.70); EOSINOPHILS % (AUTO) 17.1 % (0.0-8.0); HEMATOCRIT 38.3 % (42-54); IMMATURE GRANULOCYTE ABSOLUTE 0.02 K/uL (0-1); LYMPHOCYTES % (AUTO) 28.1 % (21.0-51.0); MEAN CORPUSCULAR HEMOGLOBIN 28.1 pg (27.0-33.0); MEAN CORPUSCULAR HGB CONC 32.9 g/dL (32.0-36.0); MEAN CORPUSCULAR VOLUME 85.3 fL (79-99); MONOCYTES # (AUTO) 0.6 K/uL (0.1-1.0); MONOCYTES % (AUTO) 8.7 % (3.0-13.0); NEUTROPHILS # (AUTO) 3.3 K/uL (1.8-7.7); NEUTROPHILS % (AUTO) 45.2 % (40.0-77.0); NUCLEATED RED BLOOD CELLS 0.3 % (0.0-0.19); PLATELET COUNT (AUTO) 199 K/uL (130-400); RED BLOOD CELL COUNT(AUTO) 4.49 MIL/uL (4.50-6.20); WHITE BLOOD COUNT (AUTO) 7.3 K/uL (4.8-10.8)
[2025-01-02 07:08] LABS: CREATININE 0.9 mg/dL (0.5-1.3); MAGNESIUM 1.8 mg/dL (1.80-2.40); PHOSPHORUS 3.2 mg/dL (2.5-4.9); POTASSIUM 4.6 mmol/L (3.5-5.1); THYROID STIMULATING HORMONE 4.14 uIU/mL (0.36-3.74)
[2025-01-02] MEDS: INSULIN humuLIN R 100 UNIT/ML 3ML SQ SCH (07:30)
[2025-01-02] MEDS: metOPROLol sucCINATE 50 MG TAB.SR.24H PO SCH (09:00)
[2025-01-02] MEDS ORDERED: ASPIRIN 81MG CHEW TAB PO SCH (09:00)
[2025-01-02] MEDS: SACUBITRIL/VALSARTAN 1 EACH TABLET PO SCH (09:34)
[2025-01-02] MEDS: PANTOPrazole 40 MG TAB DR PO SCH (09:35)
[2025-01-02] MEDS: RANOLAZINE 500 MG TAB.SR.12H PO SCH (09:35)
[2025-01-02] MEDS: cloPIDOgrel 75MG TAB PO SCH (09:35)
[2025-01-02] MEDS: ASPIRIN 81MG CHEW TAB PO SCH (09:36)
--- NOTE | 2025-01-02 09:36 | HMCIMG ---
Exam Type: CHEST 1VW Clinical Information: CHEST PAIN Comparison: None Findings: There is cardiomegaly and there is status post median sternotomy. The lungs are clear of infiltrates. Left-sided cardiac pacemaker is noted with leads in place. Impression: Clear lungs.
--- NOTE | 2025-01-02 09:43 | NUR ---
metoprolol held bp 119/67. patient agreed, since bp is in the lower side. denies cp
--- NOTE | 2025-01-02 13:25 | NUR ---
DCP Patient lives at home with Daylin Jesus spouse [phone]. 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 States able to complete ADL's on his own. Denies medical devices. Denies home health and dialysis services. PCP - Reuben Wakefield MD. Pharmacy - [facility] in [place]. Denies needs at discharge to home with family. Addendum: 01/02/25 at 1328 by MAGED LARA RN CM Amended: Links added.
--- NOTE | 2025-01-02 13:42 | HMCSR ---
APPROVED REPORT EXAM: Two-dimensional and M-mode echocardiogram with Doppler and color Doppler. INDICATION ICD: Chest Pain at rest 2D Dimensions RVDd3.2 cmLVEF(%)25.7 (>50%)LVED Vol(simp.)125.0 mL IVSd0.7 (0.7-1.1cm)FS(%)12 %LVES Vol(simp.)82.6 mL LVDd5.8 (3.8-5.6cm)LA (2D)3.6 (1.6-4.0cm)LVEF(%, simp.)34 % PWd0.7 (0.7-1.1cm)Ao Root(2D)3.8 (2.0-3.7cm)LA ESV INDEX (4CH)25.00 mL/m2 IVSs0.9 cmLVOT diam2.4 (1.8-2.4cm)LA ESV INDEX (2CH)31.40 mL/m2 LVDs5.1 (2.5-4.0cm)LA ESV INDEX (BP)26.80 mL/m2 PWs0.8 cm Deformation Strain Apical 414.0 % Apical 216.0 % Apical 312.0 % Global Pyqscy75.0 % M-Mode Dimensions EPSS1.7 cm LA (MM)3.8 (1.6-4.0cm) Ao Root(MM)3.7 (2.0-3.7cm) Aortic Valve AoV VTI0.2 mAo Mean GR2.0 mmHgLVOT VTI0.20 m CHAITANYA (VMAX)3.8 cm2AVA (VTI) 3.8 cm2 Mitral Valve MV E Vmax55.3 cm/sDECEL Sjwg801 ms MV A Vmax79.5 cm/sP 1/2 T69 ms E/A ratio0.7MVA (PHT)3.2 cm2 MR Max PG53 mmHg TDI E/E' Nebsdz77.1E/E' Lateral8.3 Medial E' Peak V5.50 cm/sLateral E' Peak V6.70 cm/s Tricuspid Valve TR Vmax2.2 m/sRAP (EST) 3 nmQxJLVK79.8 mmHg TR Peak GR19.8 mmHg Left Ventricle The left ventricle is borderline dilated. GLS -14.0%. Mild-moderate global hypokinesis noted There is normal left ventricular wall thickness. LVEF is 30-35%. Stage I diastolic dysfunction. Right Ventricle The right ventricle is normal size. Right ventricular systolic function is mildly reduced. Device guille d is present in the right ventricle. Atria The left atrium size is normal. The right atrium is mildly dilated. Aortic Valve The aortic valve is normal in structure. No aortic regurgitation is present. There is no aortic valvu lar stenosis. Mitral Valve The mitral valve is normal in structure. There is trace of mitral valve regurgitation noted. There is no mitral valve stenosis. Tricuspid Valve The tricuspid valve is normal in structure. There is trace of tricuspid valve regurgitation noted. Pulmonic Valve The pulmonary valve is normal in structure. There is no pulmonic valvular regurgitation. Great Vessels The aortic root is normal in size. The IVC is normal in size and collapses >50% with inspiration. Pericardium There is no pericardial effusion. Other Information Quality : Adequate Conclusion LVEF is 30-35%. Device lead is present in the right ventricle. Stage I diastolic dysfunction. GLS -14.0%. Mild-moderate global hypokinesis noted
--- NOTE | 2025-01-02 14:43 | DS ---
[facility] DISCHARGE SUMMARY Date Patient Seen: Jan 02, 2025 Time of Visit: 1210 Supervising Physician: Dr. POLLARD Primary Care Physician: [Dr. Reuben Wakefield] Outpatient Specialists: [Dr. Salguero-cardio] Inpatient Consults: [ ] PROBLEM LIST: Chest pain at rest; likely unstable angina:POA, resolved chest workup negative CAD s/p CABG x5 in 2001, PTCA and stent procedures including PTCA and stenting of the saphenous vein graft to the RCA, PTCA and stenting of the left main into the OM1 05/07/2017, PTCA and stenting of the saphenous vein graft to the PDA 08/16/2019 AICD in situ, implanted on 12/2019, [employer] Chronic combined congestive heart failure, LVEF is 40-45% 02/2024 History of CABG x5 History of acute inferior ST segment elevation ID September 2022 with cardiac catheterization 10/07/2022 demonstrating an acute thrombotic occlusion of the saphenous vein graft to the PDA with multiple prior stents Moderate ischemic cardiomyopathy with HX of prolonged QTc History of hypertension History of hyperlipidemia HX of bronchitis HX of Community Acquired PNA Type 2 diabetes mellitus with hemoglobin A1c of 7.9 on 03/25/24 HOSPITAL COURSE: HPI (per admitting provider)Patient is a 74-year-old male with PMH significant for CAD s/p CABG x 5 and stents, DM, HLD, cardiomyopathy s/p AICD, HTN, and chronic angina who has presented to the ED accompanied by his concerning acute onset chest pain that started few hours [employer]. He said he was resting and watching TV when he suddenly felt a poking pain of 8-9 scale in the middle of his chest without radiation or migration and no known provocation. It lasted for about an hour. He simultaneously experienced dry cough and nausea. He reports that 2 weeks ago, he suddenly experienced feeling cold and numb on his left arm which eventually went away without interventions. His AICD was recently checked with good battery life. He took 2 ASA prior to going to ED and by the time he presented himself at the triage, his pain was gone already. He denies other constitutional symptoms. Labworks including troponin was unremarkable, EKG was negative for acute findings. CXR is pending result. Physical assessment was unrevealing without reproducible chest tenderness, endorses ZERO pain. Goals of care were discussed with the patient verbalizing understanding and agreement. Patient was seen and examined at bedside with no family present. Patient is awake alert able to answer simple questions appropriately. Patient denies any reoccurrence chest pain, and denies any shortness of breadth. Denies any nausea vomiting or abdominal pain. Patient's troponin levels negative. Patient's EKG unremarkable. Patient's BNP unremarkable. Patient's COVID and flu negative, patient's a.m. labs unremarkable. Instructed patient will be getting discharged today and we will need to follow up with PCP within 3-5 days upon discharge, along with following up with Cardiology within 3-5 days upon discharge, also instructed cardiology's can obtain echo report from this admission. Patient voices understanding agrees with plan has no questions at this time. The patient was treated for the following problems: ACTIVE PROBLEM LIST FOR THE HOSPITALIZATION: Chest pain at rest; likely unstable angina:POA, resolved chest workup negative CHRONIC PROBLEMS: continue previous management per PCP unless otherwise indicated BAG TESTER FINDINGS/RECOMMENDATIONS: na PROCEDURES: as mentioned above DISCHARGE MEDICATIONS: Pt hemodynamically stable and afebrile at time of discharge. PCP notified of patients admission, hospital course and discharge. Continued Medications: Aspirin (Aspirin 81MG Chew Tab) 81 Mg Tab.chew 81 MG PO DAILY, TAB.CHEW Atorvastatin Calcium (Atorvastatin Calcium) 80 Mg Tablet 80 MG PO HS, TAB Clopidogrel Bisulfate (Clopidogrel) 75 Mg Tablet 75 MG PO DAILY, TAB Metoprolol Succinate (Metoprolol Succinate) 50 Mg Tab.er.24h 50 MG PO BID, TAB Ranolazine (Ranolazine ER) 1,000 Mg Tab.er.12h 1000 MG PO BID, TAB Sacubitril/Valsartan (Entresto 24 mg-26 mg Tablet) 24 Mg-26 Mg Tablet 1 EACH PO BID, TAB PHYSICAL EXAM: GENERAL: alert, weak, awake oriented x 3 HEENT: EOMI, Sclera non icteric, moist mucosa NECK: Supple, no JVD, trachea midline LUNGS: Clear breath sounds bilaterally. No wheezes HEART: Regular rate and rhythm. Normal S1 and S2, without murmurs ABD: Abdomen soft, nontender. Bowel sounds present EXT: No clubbing cyanosis or edema NEURO: Alert and oriented to person, follows commands FOLLOW-UP: Follow-up with PCP in 2-3 days Follow up with Cardiology within 3-5 days upon discharge RECOMMENDATIONS: See Discharge Instructions This case was seen and discussed with my supervising physician. 30 minutes spent on discharge process, including evaluation of the patient, discussion with nursing staff, medication reconciliation and follow-up appointments SANDHYA MORIN Jan 02, 2025 14:43
[2025-01-02 16:10] VITALS: BP 108/66; PULSE 64; RESP 16; TEMP 97.6; O2SAT 96
[2025-01-02] MEDS ORDERED: atorVAStatin 40 MG TABLET PO SCH (21:00)
== END 2025-01-02 16:13 | disposition home or self-care (01) ==
LOC: EDH 22:05 → EDHIP 01-02 00:52
PROVIDERS: ADMIT Internal Medicine Critical Care Medicine; ATTEND Internal Medicine Critical Care Medicine
DX: R07.89 Other chest pain (principal); Z20.822 Contact with and (suspected) exposure to COVID-19; I25.10 Atherosclerotic heart disease of native coronary artery without angina pectoris; I25.2 Old myocardial infarction; E78.00 Pure hypercholesterolemia, unspecified; I11.0 Hypertensive heart disease with heart failure; I50.42 Chronic combined systolic (congestive) and diastolic (congestive) heart failure; E11.9 Type 2 diabetes mellitus without complications; I25.5 Ischemic cardiomyopathy; Z88.0 Allergy status to penicillin; Z95.5 Presence of coronary angioplasty implant and graft; Z79.899 Other long term (current) drug therapy
CPT/HCPCS: 82550; 84484 ×2; 80048 ×2; 83880; 85025 ×2; 71045; 93005; 99285; 84443; 83735; 84100; 80061; 87804 ×2; 82948 ×2; 87426; 81003; 36415; 93306; 93356; G0378 ×14